=== PATIENT | male | born 1975 | race Two or more races ===

== ENCOUNTER 2024-05-10 10:28 | Emergency (ER) | payer OTHER ==
[~2024-05-10] VITALS: Ht 170.2 cm; Wt 79.4 kg
[2024-05-10 12:38] LABS: HEMATOCRIT 39.3 % (39.0-48.0); HEMOGLOBIN 13.3 g/dL (13-16.00); MEAN CORPUSCULAR HEMOGLOBIN 31.4 pg (27.00-32.0); MEAN CORPUSCULAR HGB CONC 33.7 g/dl (32.0-36.0); PLATELET COUNT 272 K/uL (150-450); RED BLOOD COUNT 4.23 M/uL (4.00-6.00); RED CELL DISTRIBUTION WIDTH 13.7 % (11.5-14.5)
== END 2024-05-10 13:40 | disposition home or self-care (01) ==
LOC: ER 10:30
PROVIDERS: General Practice
DX: L30.9 Dermatitis, unspecified (principal)